=== PATIENT | female | born 1965 | race Two or more races ===

== ENCOUNTER 2017-04-23 09:09 | Emergency (ER) | payer BC ==
[~2017-04-23] VITALS: Ht 165.1 cm; Wt 95.3 kg
[~2017-04-23 09:09] MED LIST: ACET325T9 PO; ASPI1TAB30 PO; CETI10TA22 PO; EPIN0.155 IJ; ZOLP5TAB PO; [UNRECOGNIZED DRUG - CODE] PO; [UNRECOGNIZED DRUG - OTHER]
[2017-04-23] MEDS ORDERED: FAMOTIDINE 20 MG/2 ML VIAL IVP ONE (09:45)
[2017-04-23] MEDS ORDERED: IV NORMAL SALINE 1000ML BAG 1,000 ML IV ONE (09:45)
[2017-04-23 09:54] LABS: BILIRUBIN,URINE NEGATIVE (NEG); GLUCOSE,URINE NEGATIVE (NEG); NITRITE,URINE NEGATIVE (NEG); PH,URINE 7.5; PROTEIN,URINE NEGATIVE (NEG-TRACE); UROBILINOGEN,URINE 0.2 mg/dL (0.2 mg/dL)
[2017-04-23 09:54] LABS: BASO % 0 % (0-3); EOS % 1 % (0-3); HEMATOCRIT 39.8 % (36.0-47.0); HEMOGLOBIN 13.8 g/dL (12.0-15.5); LYMPH # 1.4 x10^3/uL (1.0-4.8); LYMPH % 16 % (24-48); MEAN CORPUSCULAR HEMOGLOBIN 31 pg (25-35); MEAN CORPUSCULAR HGB CONC 35 g/dL (31-37); MEAN CORPUSCULAR VOLUME 89 fL (79-100); MONO % 7 % (0-9); NEUT % 76 % (31-73); PLATELET COUNT 221 x10^3/uL (140-400); RED BLOOD COUNT 4.45 x10^6/uL (3.50-5.40); RED CELL DISTRIBUTION WIDTH 13.2 % (11.5-14.5); WHITE BLOOD COUNT 8.6 x10^3/uL (4.0-11.0)
[2017-04-23 10:04] LABS: SQUAMOUS EPITHELIAL CELL,UR MANY /LPF
[2017-04-23 10:06] LABS: BACTERIA,URINE MOD /HPF (0-FEW)
--- NOTE | 2017-04-23 10:15 | PHYS DOC ---
Past Medical History Past Medical History: GERD, Other Additional Past Medical Histor: HIATAL HERNIA-PER PT REPORT Past Surgical History: Appendectomy, Cholecystectomy, Hysterectomy, Other Additional Past Surgical Histo: "kidney", carpal tunnel Alcohol Use: None Drug Use: None Adult General Chief Complaint Chief Complaint: ABDOMINAL PAIN HPI HPI Patient is a 52 year old female who presents with moderate right upper quadrant abdominal pain and midepigastric abdominal pain that began 1 day ago. Patient denies any injury. Patient states the pain is worse when she takes a deep breath. Patient denies any urgency frequency or dysuria. Denies any chance she is . She states she's had appendectomy cholecystectomy and a full hysterectomy. Review of Systems Review of Systems Constitutional: Denies fever or chills [] Eyes: Denies change in visual acuity, redness, or eye pain [] HENT: Denies nasal congestion or sore throat [] Respiratory: Denies cough or shortness of breath [] Cardiovascular: No additional information not addressed in HPI [] GI: Midepigastric and right upper quadrant abdominal pain : See history of present illness Musculoskeletal: Denies back pain or joint pain [] Integument: Denies rash or skin lesions [] Neurologic: Denies headache, focal weakness or sensory changes [] Endocrine: Denies polyuria or polydipsia [] Current Medications Current Medications Current Medications Medications (Trade) Dose Ordered Sig/Ilene Start Time Stop Time Status Last Admin Dose Admin Famotidine (Pepcid) 20 mg 1X ONCE 04/23/17 09:45 04/23/17 09:46 DC 04/23/17 09:53 20 MG Info (Do NOT chart on this entry -- for MONITORING) 1 each PRN DAILY PRN 04/23/17 10:30 04/25/17 10:29 Iohexol (Omnipaque 300 Mg/ml) 75 ml 1X ONCE 04/23/17 10:30 04/23/17 10:31 DC 04/23/17 10:36 75 ML Magnesium Citrate (Citroma) 296 ml 1X ONCE 04/23/17 11:30 04/23/17 11:31 DC Sodium Chloride 1,000 ml @ 1,000 mls/hr 1X ONCE 04/23/17 09:45 04/23/17 10:44 DC 04/23/17 09:53 1,000 MLS/HR Allergies Allergies Allergies Coded Allergies Type Severity Reaction Last Updated Verified nut - unspecified Adverse Reaction Intermediate 04/23/17 No soy Adverse Reaction Intermediate 04/23/17 No wheat Adverse Reaction Intermediate 04/23/17 No Physical Exam Physical Exam Constitutional: Well developed, well nourished, no acute distress, non-toxic appearance. [] HENT: Normocephalic, atraumatic, bilateral external ears normal, oropharynx moist, no oral exudates, nose normal. [] Eyes: PERRLA, EOMI, conjunctiva normal, no discharge. [] Neck: Normal range of motion, no tenderness, supple, no stridor. [] Cardiovascular:Heart rate regular rhythm, no murmur [] Lungs & Thorax: Bilateral breath sounds clear to auscultation [] Abdomen: Bowel sounds normal, soft, mild tenderness on palpation of the right upper quadrant with a negative Richter sign, mild midepigastric abdominal tenderness on exam, no right lower quadrant pain or tenderness on exam, no masses, no pulsatile masses. [] Skin: Warm, dry, no erythema, no rash. [] Back: No tenderness, no CVA tenderness. [] Extremities: No tenderness, no cyanosis, no clubbing, ROM intact, no edema. [] Neurologic: Alert and oriented X 3, normal motor function, normal sensory function, no focal deficits noted. [] Psychologic: Affect normal, judgement normal, mood normal. [] Current Patient Data Vital Signs Vital Signs Date Time Temp Pulse Resp B/P (MAP) Pulse Ox O2 Delivery O2 Flow Rate FiO2 04/23/17 09:22 98.5 93 18 119/66 (83) 97 Room Air 98.5 Lab Values Laboratory Tests Test 04/23/17 09:20 04/23/17 09:45 Urine Collection Type Void Urine Color Yellow Urine Clarity Clear Urine pH 7.5 Urine Specific [place]ima 1.020 Urine Protein Negative mg/dL (NEG-TRACE) Urine Glucose (UA) Negative mg/dL (NEG) Urine Ketones (Stick) Negative mg/dL (NEG) Urine Blood Negative (NEG) Urine Nitrite Negative (NEG) Urine Bilirubin Negative (NEG) Urine Urobilinogen Dipstick 0.2 mg/dL (0.2 mg/dL) Urine Leukocyte Esterase Negative (NEG) Urine RBC 6-10 /HPF (0-2) Urine WBC 1-4 /HPF (0-4) Urine Squamous Epithelial Cells Many /LPF Urine Bacteria Mod /HPF (0-FEW) Urine Mucus Marked /LPF White Blood Count 8.6 x10^3/uL (4.0-11.0) Red Blood Count 4.45 x10^6/uL (3.50-5.40) Hemoglobin 13.8 g/dL (12.0-15.5) Hematocrit 39.8 % (36.0-47.0) Mean Corpuscular Volume 89 fL (79-100) Mean Corpuscular Hemoglobin 31 pg (25-35) Mean Corpuscular Hemoglobin Concent 35 g/dL (31-37) Red Cell Distribution Width 13.2 % (11.5-14.5) Platelet Count 221 x10^3/uL (140-400) Neutrophils (%) (Auto) 76 % (31-73) H Lymphocytes (%) (Auto) 16 % (24-48) L Monocytes (%) (Auto) 7 % (0-9) Eosinophils (%) (Auto) 1 % (0-3) Basophils (%) (Auto) 0 % (0-3) Neutrophils # (Auto) 6.5 x10^3uL (1.8-7.7) Lymphocytes # (Auto) 1.4 x10^3/uL (1.0-4.8) Monocytes # (Auto) 0.6 x10^3/uL (0.0-1.1) Eosinophils # (Auto) 0.1 x10^3/uL (0.0-0.7) Basophils # (Auto) 0.0 x10^3/uL (0.0-0.2) Sodium Level 141 mmol/L (136-145) Potassium Level 4.5 mmol/L (3.5-5.1) Chloride Level 103 mmol/L (98-107) Carbon Dioxide Level 31 mmol/L (21-32) Anion Gap 7 (6-14) Blood Urea Nitrogen 13 mg/dL (7-20) Creatinine 0.8 mg/dL (0.6-1.0) Estimated GFR (Cockcroft-Gault) 75.3 BUN/Creatinine Ratio 16 (6-20) Glucose Level 119 mg/dL (70-99) H Calcium Level 8.5 mg/dL (8.5-10.1) Total Bilirubin 0.9 mg/dL (0.2-1.0) Aspartate Amino Transferase (AST) 63 U/L (15-37) H Alanine Aminotransferase (ALT) 105 U/L (14-59) H Alkaline Phosphatase 149 U/L (46-116) H Creatine Kinase 41 U/L (26-192) Creatine Kinase MB (Mass) < 0.5 ng/mL (0.0-3.6) Creatine Kinase MB Relative Index % (0-4) Troponin I Quantitative < 0.017 ng/mL (0.000-0.055) HN-Cur-W-Type Natriuretic Peptide 106 pg/mL (0-124) Total Protein 6.8 g/dL (6.4-8.2) Albumin 3.6 g/dL (3.4-5.0) Albumin/Globulin Ratio 1.1 (1.0-1.7) Lipase 74 U/L (73-393) Laboratory Tests 04/23/17 09:45 Laboratory Tests 04/23/17 09:45 EKG EKG 09:30EKG interpreted by Dr. Den frost, leftward axis, heart rate 86, QRS interval 80, no STEMI [] Radiology/Procedures Radiology/Procedures [] Course & Med Decision Making Course & Med Decision Making Pertinent Labs and Imaging studies reviewed. (See chart for details) This is a 52-year-old female patient who presents to the ED today with midepigastric abdominal pain and right upper quadrant abdominal pain for 1 day. Patient has history of for hysterectomy, appendectomy and cholecystectomy. 09:30EKG interpreted by Dr. Den frost, leftward axis, heart rate 86, QRS interval 80, no STEMI [] CBC with no acute findings. CMP with AST of 63 ALT of 105 mL care 149. Troponin CK-MB and BNP were normal. CT of the abdomen and pelvic was negative for any acute findings but noted for constipation. Patient was discharged with mag citrate and MiraLAX. We talked about increasing dietary fiber intake as well as water intake. She is to follow- up with her own PCP in 1-2 weeks as needed. She is provided return precautions and discharged in stable condition. Dragon Disclaimer Dragon Disclaimer This electronic medical record was generated, in whole or in part, using a voice recognition dictation system. Departure Departure Impression: Primary Impression: Constipation Additional Impressions: Epigastric abdominal pain Right upper quadrant pain Disposition: 01 HOME, SELF-CARE Condition: STABLE Referrals: PETE COOPER MD (PCP) Follow-up with your doctor next week Patient Instructions: Abdominal Pain, Constipation, Adult Additional Instructions: You were seen for right upper quadrant abdominal pain and epigastric pain. Your lab work is negative for any acute findings. Your CT of the abdomen and pelvic is negative for any acute findings but noted for constipation. Increase your dietary fiber intake as well as a water intake. Consider taking MiraLAX every day. Consider taking mag citrate as needed for constipation. Follow-up with your doctor in the next 7 days. Problem Qualifiers Primary Impression: Constipation Constipation type: unspecified constipation type Qualified Codes: K59.00 - Constipation, unspecified HERNESTO SAVAGE TECHNICAL REP Apr 23, 2017 10:15
[2017-04-23 10:17] LABS: CALCIUM 8.5 mg/dL (8.5-10.1); CREATININE 0.8 mg/dL (0.6-1.0); GFR 75.3; POTASSIUM 4.5 mmol/L (3.5-5.1)
[2017-04-23 10:23] LABS: ALBUMIN 3.6 g/dL (3.4-5.0); ALBUMIN/GLOBULIN RATIO 1.1 (1.0-1.7); TOTAL BILIRUBIN 0.9 mg/dL (0.2-1.0); TOTAL PROTEIN 6.8 g/dL (6.4-8.2)
[2017-04-23] MEDS ORDERED: IOHEXOL 300 MG/ML 75 ML VIAL IV ONE (10:30)
[2017-04-23] MEDS ORDERED: CONTRAST GIVEN MC PRN (10:30)
[2017-04-23 10:36] LABS: CKMB MASS < 0.5 ng/mL (0.0-3.6); CREATINE KINASE 41 U/L (26-192)
--- NOTE | 2017-04-23 10:43 | RAD ---
Indication: Epigastric pain and right lower chest pain. Time of exam 10:34 AM Correlation is made with prior chest from 10/01/2016. There is minimal scarring or atelectasis in the left base. The right lung is clear. No effusion or pneumothorax is seen. The pulmonary vascularity is normal. The heart size is normal. Impression: No acute cardiopulmonary process is detected.
[2017-04-23 10:45] VITALS: BP 137/78
--- NOTE | 2017-04-23 10:56 | ACF ---
Admission Forms Criteria ABDOMINAL PAIN Clinical Indications for Admission to Inpatient Care (Place 'X' for any and all applicable criteria): Admission is indicated for ANY ONE of the following(1)(2)(3)(4)(5): [ ]I. Inpatient admission required rather than observation care (Also use Abdominal Pain: Observation Care, as appropriate) because of ANY ONE of the following: [ ]a) Severe pain requiring acute inpatient management [ ]b) Identification of etiology/finding that requires inpatient care (eg, aortic dissection, free air) [ ]c) Absent bowel sounds with complete ileus(6) [ ]d) Suspected toxic megacolon [ ]e) Severe electrolyte abnormalities requiring inpatient care [ ]f) High fever or infection requiring inpatient admission as indicated by ANY ONE of following(7)(8): [ ] i) Appropriate outpatient or observational care antimicrobial treatment unavailable, not effective, or not feasible [ ] ii) Documented bacteremia [ ] iii) Temperature > 104.9 degrees F (oral) [ ] iv) T >103.1 F (oral) or < 96.8 F(rectal) that does not respond to all emergency treatment measures [ ]g) Signs of intestinal obstruction [B] [ ]h) Hemodynamic instability [ ]i) IV fluid to replace significant ongoing losses (greater than 3 L/m2 per day) (12)(13) [ ]j) Percutaneous or open drainage (eg, abscess, biliary tract ) procedures [ ]k) Parenteral nutrition regimen that must be implemented on inpatient basis [ ]l) Other condition,treatment or monitoring requiring inpatient admission. [ ]II. Peritoneal signs present [ ]III. Surgery needed that cannot be performed on an ambulatory basis. [ ]IV. Evaluation requires patient to not eat or drink for extended period ( eg, more than 24 hours). [ ]V. Contraindications and/or Inappropriate clinical situations for Observational Care in patients with abdominal pain, when ANY ONE of the following is required: [ ]a) Thorough evaluation is required to prevent catastrophic events due to delays in diagnosing (e.g.Mesenteric ischemia) 1,3 [ ]b) Patient with severe pathology or with chronic symptoms unlikely to improve in the ED stay (3) [ ]. General contraindications and/or Inappropriate clinical situations for Observational Care in patients with abdominal pain, when ANY ONE of the following is required: [ ]a) Prediction of prolongation of LOS based on ANY ONE of the following may be considered as a contraindication for observational care 2, 3, 4, 5, 6, 7, 8, 9, 10, 11 [ ]i) Age > 65 yrs. [ ]ii) Patient arriving by ambulance [ ]iii) Patient with high acuity [ ]iv) Patient requiring vital sign monitoring [ ]v) Patient on IV medication [ ]b) Systolic blood pressures 180mmHg 3,12 [ ]c) Patient with altered mental status including delirium and other alteration of consciousness, (3) [ ]d) Patient whose discharge disposition will be to a half-way home or rehabilitation home should not be managed in Emergency Department Observation Unit. CMS rule requires 3 days hospital stay before such placement.3,13 [ ]e) Patient with failure to thrive due to broad array of etiologies 3,16,17 [ ]f) Inability to ambulate 3,14 Extended stay beyond goal length of stay may be needed for(2)(3): [ ]a) Persistent abdominal pain with suspected intra-abdominal process [ ]b) Diagnosed condition requiring continued stay (e.g., pancreatitis, complicated diverticulitis) [ ]c) Surgery (e.g., colectomy) The original [facility] content created by [employer] has been revised. The portions of the content which have been revised are identified through the use of italic text or in bold, and [facility] has neither reviewed nor approved the modified material.All other unmodified content is copyright [employer]. Please see references footnoted in the original [facility] edition 2016 STEPHANY CORONA Apr 23, 2017 10:55
--- NOTE | 2017-04-23 11:03 | RAD ---
Indication: Epigastric pain. Axial imaging through the abdomen and pelvis was performed after the administration of intravenous contrast. Comparison is made with prior CT from 11/07/2011. The lung bases are clear apart from mild linear scarring or atelectasis in the lower lobes. No discrete liver mass is identified. The gallbladder is surgically absent. The pancreas and spleen are unremarkable. No adrenal mass is identified. The kidneys are unremarkable. The aorta is nonaneurysmal. The small and large bowel loops appear to be normal in caliber. No free fluid is detected. No acute inflammatory process is seen. The appendix may be surgically absent. The bladder is unremarkable. No abdominal or pelvic lymphadenopathy is detected. Impression: Essentially unremarkable CT of the abdomen and pelvis apart from moderate stool throughout the colon, perhaps on the basis of constipation. No acute feature is detected.
[2017-04-23] MEDS ORDERED: MAGNESIUM CITRATE 296 ML SOLUTION. PO ONE (11:30)
--- NOTE | 2017-04-23 13:31 | EKG ---
[facility] [address] [place] [address] Test Date: 2017-04-23 Test Time: 09:30:51 Pat Name: LORE RAMSEY Department: Room: Gender: F Hydrometer Calibrator: : 1965 Requested By: HERNESTO SAVAGE Order Number: [id number] [place] MD: Felisha Cordero Measurements Intervals [place] Rate: 86 P: 52 ND: 154 QRS: 26 QRSD: 80 T: 55 QT: 366 QTc: 441 Interpretive Statements SINUS RHYTHM LEFT ATRIAL ABNORMALITY ABNORMAL ECG Electronically Signed On 04-24-2017 14:16:44 CDT by Felisha Cordero
== END 2017-04-23 12:37 | disposition home or self-care (01) ==
LOC: ER 09:09
DX: R10.11 Right upper quadrant pain (principal); R10.13 Epigastric pain; K59.00 Constipation, unspecified; K21.9 Gastro-esophageal reflux disease without esophagitis; Z90.710 Acquired absence of both cervix and uterus; Z90.49 Acquired absence of other specified parts of digestive tract; Z98.890 Other specified postprocedural states; Z91.018 Allergy to other foods
CPT/HCPCS: 36415; 71010; 74177; 80053; 81001; 82553; 83690; 83880; 84484; 85027; 93005; 96361; 96374; 99285; J7030; Q9967; S0028

== ENCOUNTER → 2017-07-28 | Outpatient (CLI) | payer BC ==
[~2017-07-28] MED LIST changes: -ASPI1TAB30 PO; +ASPI1TAB31 PO
--- NOTE | 2017-07-28 11:17 | RAD ---
Radionuclide gastric emptying study, 07/28/2017: History: Abdominal pain, reflux The study was performed utilizing a solid test meal radiolabeled with 2.1 mCi of technetium 99m sulfur colloid. The time to half emptying of the test meal from the patient's stomach was estimated at 400 minutes. A normal T1/2 is 60 minutes +/- 30 minutes. IMPRESSION: Moderately delayed gastric emptying.
== END | disposition home or self-care (01) ==
LOC: NM 08:52
PROVIDERS: ATTEND Internal Medicine Gastroenterology
DX: K21.9 Gastro-esophageal reflux disease without esophagitis (principal); K30 Functional dyspepsia
CPT/HCPCS: 78264; A9541

== ENCOUNTER 2017-08-16 06:27 | Emergency (ER) | payer BC ==
[~2017-08-16] VITALS: Ht 165.1 cm; Wt 95.3 kg
[2017-08-16] MEDS ORDERED: IBUPROFEN 400 MG TABLET. PO ONE (07:00)
[2017-08-16] MEDS ORDERED: ACETAMINOPHEN 500 MG TABLET PO ONE (07:00)
--- NOTE | 2017-08-16 07:13 | RAD ---
Right foot, 3 views, 08/16/2017: History: Injury, pain There is deformity of the distal aspect of the proximal phalanx of the little toe involving its articular cortex at the PIP joint. This fracture is probably recent. No other fracture or dislocation is identified. There is moderate diffuse soft tissue swelling about the forefoot. IMPRESSION: Fracture of the proximal phalanx of the right little toe.
[2017-08-16] MEDS ORDERED: HYDR-2758 PO (07:29)
[2017-08-16] MEDS ORDERED: NAPR500T PO (07:29)
--- NOTE | 2017-08-16 07:29 | PHYS DOC ---
Past Medical History Past Medical History: GERD, Other Additional Past Medical Histor: HIATAL HERNIA-PER PT REPORT Past Surgical History: Appendectomy, Cholecystectomy, Hysterectomy, Other Additional Past Surgical Histo: "kidney", carpal tunnel Alcohol Use: None Drug Use: None Adult General Chief Complaint Chief Complaint: TOE PROBLEM HPI HPI She is a pleasant 52-year-old otherwise healthy female who was playing with her dog yesterday which she stubbed her toe into the edge of a door. She noticed immediate pain localized swelling at the proximal portion of that small right toe. She denies any numbness, tingling belly pain with walking. The pain is severe 10 of 10 with walking 6 of 10 with at rest and the foot is elevated. She denies any prior injury to this toe. Noticed no deformity just local soft tissue swelling. Review of Systems Review of Systems Constitutional: Denies fever or chills [] Musculoskeletal: Her only complaint is joint pain over the proximal portion of the toe right foot pinky toe Integument: Denies rash or skin lesions [] Neurologic: Denies headache, focal weakness or sensory changes [] Current Medications Current Medications Current Medications Medications (Trade) Dose Ordered Sig/[facility] Start Time Stop Time Status Last Admin Dose Admin Acetaminophen (Tylenol) 1,000 mg 1X ONCE 08/16/17 07:00 08/16/17 07:01 DC 08/16/17 06:54 1,000 MG Ibuprofen (Motrin) 400 mg 1X ONCE 08/16/17 07:00 08/16/17 07:01 DC 08/16/17 06:54 400 MG Allergies Allergies Allergies Coded Allergies Type Severity Reaction Last Updated Verified nut - unspecified Adverse Reaction Intermediate 04/23/17 No soy Adverse Reaction Intermediate 04/23/17 No wheat Adverse Reaction Intermediate 04/23/17 No Physical Exam Physical Exam Vital signs recorded on the chart at this time within normal limits. Constitutional: Well developed, well nourished, no acute distress, non-toxic appearance. [] Cardiovascular:Heart rate regular rhythm, no murmur [] Lungs & Thorax: Bilateral breath sounds clear to auscultation [] Skin: Warm, dry, no erythema, no rash. [] Extremities: She has marked tenderness to palpation over the proximal phalanx of the right pinky toe with no obvious deformity there is some mild soft tissue swelling no erythema to the wound. Patient has normal sensation to light touch brisk capillary refill +2 brisk peripheral pulses at the dorsalis pedis Neurologic: Alert and oriented X 3, normal motor function, normal sensory function, no focal deficits noted. [] Current Patient Data Vital Signs Vital Signs Date Time Temp Pulse Resp B/P (MAP) Pulse Ox O2 Delivery O2 Flow Rate FiO2 08/16/17 06:38 97.5 68 16 98 Room Air 97.5 EKG EKG [] Radiology/Procedures Radiology/Procedures [] [facility] [address] [place] [address] IMAGING REPORT Signed PATIENT: LORE RAMSEY ACCOUNT: [id number] : 1965 LOCATION: ER AGE: 52 SEX: F EXAM STATUS: REG ER ORD. PHYSICIAN: JENNIFER RIDDLE MD REASON: trauma little toe PROCEDURE: FOOT RIGHT 3V Right foot, 3 views, 08/16/2017: History: Injury, pain There is deformity of the distal aspect of the proximal phalanx of the little toe involving its articular cortex at the PIP joint. This fracture is probably recent. No other fracture or dislocation is identified. There is moderate diffuse soft tissue swelling about the forefoot. IMPRESSION: Fracture of the proximal phalanx of the right little toe. DICTATED and SIGNED BY: AUGUSTO RODRÍGUEZ MD DATE: 08/16/17 0706 CC: JENNIFER RIDDLE MD; Gracy COOPER MD ~ Course & Med Decision Making Course & Med Decision Making Pertinent Labs and Imaging studies reviewed. (See chart for details) []Patient sustained a small injury to the proximal phalanx of the right pinky toe. Based on x-ray findings she has a fracture of the proximal phalanx with no foreign body no air. The wound is not open there is no angulation or displacement of the fracture. Patient's neurovascular intact. She and I went over the results of the x-ray or plan for treatment to include a hard shoe, podiatry or follow-up, and analgesic control for pain. Dragon Disclaimer Dragon Disclaimer This electronic medical record was generated, in whole or in part, using a voice recognition dictation system. Departure Departure Impression: Primary Impression: Toe fracture, right Disposition: 01 HOME, SELF-CARE Condition: IMPROVED Referrals: Gracy COOPER MD (PCP) Patient Instructions: Toe Fracture Additional Instructions: My discharge plan Follow up: In addition patient is asked to followup with their primary doctor, within a week for followup examination and to address patient's ongoing medical conditions. Patient is advised that in the Emergency Department primary complaints are addressed and only in light of known signs and symptoms. Patient should return immediately to the emergency department if new signs and symptoms develop or patient's condition worsens in any way. At time of discharge patient was in stable condition and had verbalized understanding of the discharge instructions. Follow-up your primary care doctor for referral from podiatry. Please return for any new or increasing pain, decreased sensation or obvious signs of infection. I would advise a follow-up with podiatry so they can help manage her fractured toe Podiatry [facility] [address], [place] [address] Scripts Naproxen (NAPROSYN) 500 Mg Tablet 1 TAB PO BID, #14 TAB 1 Refill Prov: JENNIFER RIDDLE MD 08/16/17 Hydrocodone Bit/Acetaminophen (HYDROCODONE-APAP 5-325 ) 1 Each Tablet 1-2 TAB PO PRN Q6HRS Y for PAIN for 5 Days, #10 TAB 0 Refills Prov: JENNIFER RIDDLE MD 08/16/17 JENNIFER RIDDLE MD Aug 16, 2017 07:29
[2017-08-16 07:45] VITALS: BP 119/69
== END 2017-08-16 07:50 | disposition home or self-care (01) ==
LOC: ER 06:27
DX: S92.511A Displaced fracture of proximal phalanx of right lesser toe(s), initial encounter for closed fracture (principal); Z91.018 Allergy to other foods; K21.9 Gastro-esophageal reflux disease without esophagitis; W22.8XXA Striking against or struck by other objects, initial encounter; Y93.89 Activity, other specified; Y99.8 Other external cause status; Y92.89 Other specified places as the place of occurrence of the external cause
CPT/HCPCS: 73630; 99284-25

== ENCOUNTER → 2017-09-14 | Outpatient (CLI) | payer BC ==
[2017-08-16 07:45] VITALS: BP 119/69
[~2017-09-14] MED LIST changes: +HYDR-2758 PO; +IOHEXOL 180 MG/ML 10 ML VIAL. ONE; +NAPR500T PO; +methylPREDNISolone ACETATE 40 MG/ML VIAL. ONE; +methylPREDNISolone ACETATE 80 MG/ML VIAL. ONE
--- NOTE | 2017-09-14 11:13 | PAIN ---
DATE OF SERVICE: 09/14/2017 DIAGNOSES: Cervical radiculopathy, cervical degenerative disease, cervical herniated disk. HISTORY OF PRESENT ILLNESS: The patient is a 52-year-old female who returns to followup, last seen 02/19/2016. The patient had a cervical epidural steroid injection at that time with good results, the patient reports at least 75% improvement. She is unsure how long it lasted. She does not remember, it has been several months, but the pain has returned significantly over at least the last 1-2 months in the base of the neck with some radiation to the right worse than the left upper extremity. The patient reports no new motor or sensory deficits, no new changes, but still significant pain, worse with activity, especially with her activities at work. 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 The patient reports it as aching, tight, radiating, constant, becoming more severe sometimes unbearable with decreased rotation of motion secondary to stiffness and pain in the neck itself. The patient reports her pain is at 8 on a scale of 10 at its worst, is the average and its least is an 8 today. The patient reports no new motor or sensory deficits or loss of function. PHYSICAL EXAMINATION: VITAL SIGNS: The patient's blood pressure 132/96, pulse 81, respirations 18, temperature 98.1 degrees Fahrenheit, height is 5 feet 5 inches, weight is 220 pounds. GENERAL: The patient is awake, alert, oriented, appropriate, very pleasant demeanor. HEENT: Head shows normocephalic, atraumatic. Extraocular movements are intact, symmetrical. Oral cavity: Mucous membranes moist and pink. Dentition is intact. NECK: Shows anterior throat supple without palpable lymphadenopathy nodes. Swallow reflex is symmetrical. CHEST: Shows normal on inspection. Breath sounds are clear to auscultation bilaterally. HEART: Shows S1, S2 clear. ABDOMEN: Soft, nontender, nondistended. No palpable organomegaly. There is no rebound or guarding demonstrated. BACK: The patient's back shows spine grossly midline, normal-appearing cervical lordotic curvature, thoracic kyphotic curvature, and lumbar lordotic curvature. The patient's neck shows posterior cervical musculature was symmetrical. On inspection with palpation, shows some moderate tenderness with palpation in the inferior aspect of the cervical paraspinous muscles into the superior medial trapezius as well as the lateral trapezius on the right, very firm, very tender also over the spinous processes, it is very firm and tender as well. The patient shows some limited rotational motion with extension, but not with forward flexion. Right and left lateral rotation is guarded significantly, especially to about 45 degrees with significant pain reported bilaterally with 45-degree rotation. EXTREMITIES: Upper extremities show deep tendon reflexes 1+ in the biceps and triceps tendons. Motor exam is strong with approximately 4 on a scale 5 dorsiflexion and extension, quads and hamstring; 4/5 senior marketing analyst strength and equal as well as bicep and tricep flexion bilaterally and symmetrical. Peripheral pulses are 2+ radial distribution. No peripheral edema is noted. Options were discussed with the patient, the patient's old chart reviewed as her current medication regimen updated. Current review of systems updated today as well. We will proceed with a cervical epidural steroid injection today with fluoroscopic guidance. Risks were again discussed including but not limited to bleeding, possibility of epidural hematoma, subsequent neurological compromise, dural puncture, headaches, spinal cord and/or nerve damage, side effects of steroid medication and poor results regarding pain control. The patient understands and wished to proceed. The patient will return to clinic in approximately 2 weeks for followup, was counseled on return appointment, activity level and side effects to be aware of. DIAGNOSIS: Cervical radiculopathy, cervical herniated disk, cervical degenerative disk disease. PROCEDURE: Cervical epidural steroid injection, translaminar approach at C6-C7 level using C-arm fluoroscopic guidance under sterile prep and drape using local anesthetic. MEDICATION INJECTED: Total of 120 mg Depo-Medrol plus 5 mL preservative-free normal saline and 2 mL Isovue for contrast. CONDITION AT DISCHARGE: Stable. The patient tolerated procedure well, had no complications. JENNA KEARNS MD DR: RAJENDRA/francois JOB#: [id number] / [id number]
== END ==
LOC: PNCL 08:14
PROVIDERS: ATTEND Anesthesiology
DX: M50.10 Cervical disc disorder with radiculopathy, unspecified cervical region (principal)
CPT/HCPCS: 62321; J1030; J1040

== ENCOUNTER 2017-10-04 09:26 | Emergency (ER) | payer BC ==
[~2017-10-04 09:26] MED LIST changes: -IOHEXOL 180 MG/ML 10 ML VIAL. ONE; +NAPR-683 PO; -NAPR500T PO; -methylPREDNISolone ACETATE 40 MG/ML VIAL. ONE; -methylPREDNISolone ACETATE 80 MG/ML VIAL. ONE
--- NOTE | 2017-10-04 09:43 | PHYS DOC ---
Past Medical History Past Medical History: GERD, Other Additional Past Medical Histor: HIATAL HERNIA-PER PT REPORT Past Surgical History: Appendectomy, Cholecystectomy, Hysterectomy, Other Additional Past Surgical Histo: "kidney", carpal tunnel Alcohol Use: None Drug Use: None Adult General Chief Complaint Chief Complaint: DIZZY/LIGHT HEADED HPI HPI Patient is a 52 year old F who presents with headache for the past 4 days. Patient states she has a history of migraine headaches and felt this was her typical migraine headache and attempted to take migraine Excedrin over the weekend however since the headache was still present today she's had a come in to get evaluated. Patient states this feels similar to previous headaches. Patient denies any fevers. Patient states she has a pressure to the top of her head. Patient denies any chest pain or shortness of breath. Patient complains of nausea and vomiting with no diarrhea. Patient has no other complaints. Review of Systems Review of Systems GEN: Denies fevers, chills, sweats HEENT: Denies blurred vision, sore throat CV: Denies chest pain RESP: Denies shortness of air, cough GI: Denies n/v/d NEURO: Headache MSK: Denies weakness, joint pain/swelling All other systems were reviewed and found to be within normal limits, except as documented in this note. Current Medications Current Medications Current Medications Medications (Trade) Dose Ordered Sig/Ilene Start Time Stop Time Status Last Admin Dose Admin Dexamethasone Sodium Phosphate (Decadron) 10 mg 1X ONCE 10/04/17 09:45 10/04/17 09:46 DC 10/04/17 09:58 10 MG Diphenhydramine HCl (Benadryl) 50 mg 1X ONCE 10/04/17 09:45 10/04/17 09:46 DC 10/04/17 09:58 50 MG Ketorolac Tromethamine (Toradol) 30 mg 1X ONCE 10/04/17 11:00 10/04/17 11:03 DC 10/04/17 11:36 30 MG Magnesium Sulfate/ Dextrose 50 ml @ 25 mls/hr 1X ONCE 10/04/17 10:00 10/04/17 11:59 10/04/17 10:13 25 MLS/HR Metoclopramide HCl (Reglan Vial) 10 mg 1X ONCE 10/04/17 09:45 10/04/17 09:46 DC 10/04/17 09:58 10 MG Ondansetron HCl (Zofran) 4 mg 1X ONCE 10/04/17 10:15 10/04/17 10:16 DC 10/04/17 10:13 4 MG Sodium Chloride 1,000 ml @ 1,000 mls/hr 1X ONCE 10/04/17 09:45 10/04/17 10:44 DC 10/04/17 09:58 1,000 MLS/HR Allergies Allergies Allergies Coded Allergies Type Severity Reaction Last Updated Verified nut - unspecified Adverse Reaction Intermediate 04/23/17 No soy Adverse Reaction Intermediate 04/23/17 No wheat Adverse Reaction Intermediate 04/23/17 No Physical Exam Physical Exam GEN.: Mild distress. Alert and oriented. HEENT: Head is normocephalic, atraumatic, pupils were equal and reactive bilaterally, extraocular muscles are intact bilaterally NECK: Supple. LUNGS: CTAB. HEART: RRR, S1, S2 present. Peripheral pulses intact ABDOMEN: Soft, nontender. Positive bowel sounds. EXTREMITIES: Without any cyanosis. NEUROLOGIC: Normal speech, normal tone, cranial nerves II through XII are grossly intact without any focal neurological deficits PSYCHIATRIC: Normal affect, normal mood. SKIN: No ulcerations Current Patient Data Vital Signs Vital Signs Date Time Temp Pulse Resp B/P (MAP) Pulse Ox O2 Delivery O2 Flow Rate FiO2 10/04/17 11:38 76 16 95 10/04/17 09:30 97.9 136/75 (95) Room Air 97.9 Lab Values Laboratory Tests Test 10/04/17 10:10 Sodium Level 141 mmol/L (136-145) Potassium Level 3.7 mmol/L (3.5-5.1) Chloride Level 103 mmol/L (98-107) Carbon Dioxide Level 28 mmol/L (21-32) Anion Gap 10 (6-14) Blood Urea Nitrogen 9 mg/dL (7-20) Creatinine 0.9 mg/dL (0.6-1.0) Estimated GFR (Cockcroft-Gault) 65.8 Glucose Level 118 mg/dL (70-99) H Calcium Level 8.6 mg/dL (8.5-10.1) Laboratory Tests 10/04/17 10:10 EKG EKG [] Radiology/Procedures Radiology/Procedures CT scan of the head without contrast: IMPRESSION: 1. Abnormal bilateral deep white matter lucencies compatible with chronic ischemic change versus a demyelinating process such as multiple sclerosis. 2. No acute intracranial abnormality is detected.[] Course & Med Decision Making Course & Med Decision Making Pertinent Labs and Imaging studies reviewed. (See chart for details) ED course: Patient was seen and examined emergency room 50 mg of Benadryl, 10 mg Decadron, 2 g of magnesium sulfate, 10 mg Reglan, 1 L normal saline bolus, CT scan of the head without contrast and i-STAT were ordered Patient i-STAT is most likely hemolyzed with potassium is 6.5 however will recheck potassium with a lab draw Repeat potassium was 3.[address] findings in regards to possible MS and possible previous ischemic strokes and recommended short-term follow-up with PCP for possible outpatient MRI and further workup. On reexamination patient's headache had resolved and was feeling much better. MDM: After reviewing the chart, CC/HPI/PMH, physical exam, [lab results], [ radiological results], I do not believe the patient has a acute intracranial process warranting further workup and/or admission at this time. I believe the patient stable for discharge. Made patient aware of CT abnormalities and recommended short-term follow-up with her PCP in regards to the CT abnormalities and the possible need of getting outpatient MRI. Additional verbal discharge instructions were provided to the patient and that if symptoms get worse or any new symptoms arise that are worrisome to the patient she is to return to the emergency room immediately [] Dragon Disclaimer Dragon Disclaimer This electronic medical record was generated, in whole or in part, using a voice recognition dictation system. Departure Departure Impression: Primary Impression: Migraine headache Disposition: 01 HOME, SELF-CARE Condition: IMPROVED Referrals: Gracy COOPER MD (PCP) Patient Instructions: Migraine Headache Additional Instructions: Please follow-up with your family physician in the next one to 2 days and return if symptoms increase FABIOLA OLIVIA DO Oct 04, 2017 09:43
[2017-10-04] MEDS ORDERED: DEXAMETHASONE SOD PHOS 4 MG/ML VIAL IV ONE (09:45)
[2017-10-04] MEDS ORDERED: IV NORMAL SALINE 1000ML BAG 1,000 ML IV ONE (09:45)
[2017-10-04] MEDS ORDERED: METOCLOPRAMIDE HCL 10 MG/2 ML VIAL. IV ONE (09:45)
[2017-10-04] MEDS ORDERED: diphenhydrAMINE 50 MG/ML VIAL IVP ONE (09:45)
[2017-10-04] MEDS ORDERED: MAGNESIUM SULFATE 2GM 50 ML IV ONE (10:00)
[2017-10-04] MEDS ORDERED: ONDANSETRON PF 4 MG/2 ML VIAL. ONE (10:07)
[2017-10-04] MEDS ORDERED: ONDANSETRON PF 4 MG/2 ML VIAL. IV ONE (10:15)
[2017-10-04 10:26] LABS: CALCIUM 8.6 mg/dL (8.5-10.1); CREATININE 0.9 mg/dL (0.6-1.0); GFR 65.8; POTASSIUM 3.7 mmol/L (3.5-5.1)
[2017-10-04] MEDS ORDERED: KETOROLAC 30 MG/ML INJ. IV ONE (11:00)
--- NOTE | 2017-10-04 11:13 | RAD ---
CT of the head without contrast, 10/04/2017: History: Headache The ventricles are within normal limits in size. There is no shift of the midline structures. There is no evidence of acute intracranial hemorrhage or mass effect. There are mild patchy deep white matter lucencies which are most prominent in the parieto-occipital regions. The findings suggest chronic ischemic change. Abnormal deep white matter findings were also noted on an MR study from 01/03/2016. IMPRESSION: 1. Abnormal bilateral deep white matter lucencies compatible with chronic ischemic change versus a demyelinating process such as multiple sclerosis. 2. No acute intracranial abnormality is detected. PQRS Compliance Statement: One or more of the following individualized dose reduction techniques were utilized for this examination: 1. Automated exposure control 2. Adjustment of the mA and/or kV according to patient size 3. Use of iterative reconstruction technique
[2017-10-04 12:15] VITALS: BP 128/72
== END 2017-10-04 12:30 | disposition home or self-care (01) ==
LOC: ER 09:26
DX: G43.909 Migraine, unspecified, not intractable, without status migrainosus (principal); K21.9 Gastro-esophageal reflux disease without esophagitis; Z86.73 Personal history of transient ischemic attack (TIA), and cerebral infarction without residual deficits; Z91.018 Allergy to other foods
CPT/HCPCS: 36415; 70450; 80048; 96365; 96375; 99285; J1100; J1200; J1885; J2405; J2765; J7030; J7060

== ENCOUNTER → 2017-10-12 | Outpatient (CLI) | payer BC ==
[2017-10-04 12:15] VITALS: BP 128/72
[~2017-10-12] MED LIST changes: +GADOBUTROL 10 MMOL/10 ML VIAL IV ONE
--- NOTE | 2017-10-13 05:16 | KCIC ---
EXAM: MRI BRAIN WITH AND WITHOUT CONTRAST. HISTORY: Headache, dizziness, nausea. White matter changes on prior CT. TECHNIQUE: Magnetic resonance images of the brain were obtained before and after the intravenous administration of 9 mL Gadavist. COMPARISON: October 04, 2017. FINDINGS: There are no enhancing lesions. There is no diffusion restriction. There are moderately sized regions of T2/FLAIR hyperintensity within the periventricular white matter in both parietal lobes. The left-sided focus measures 2.0 x 1.2 cm. There are a few small foci elsewhere. The ventricles are normal in size and position. The paranasal sinuses are clear. The orbits are unremarkable. The temporal bones are unremarkable. The calvarium demonstrates no suspicious lesions. IMPRESSION: 1. Moderately sized region of bilateral parietal white matter T2/FLAIR hyperintensity are nonspecific. Considerations include demyelination, posterior reversible encephalopathy syndrome, or other primary white matter processes. No enhancement to suggest active demyelination. 2. Scattered small white matter lesions elsewhere are nonspecific and may represent chronic microangiopathic change. Electronically signed by: Celina Martinez MD (10/13/2017 5:13 AM) [facility] [id number]
== END | disposition home or self-care (01) ==
LOC: KCIC MRI 15:16
PROVIDERS: ATTEND Family Medicine
DX: G43.709 Chronic migraine without aura, not intractable, without status migrainosus (principal); I67.83 Posterior reversible encephalopathy syndrome; R11.0 Nausea; R90.82 White matter disease, unspecified
CPT/HCPCS: 70553; A9585

== ENCOUNTER → 2017-11-08 | Outpatient (CLI) | payer BC | END | disposition home or self-care (01) | LOC: PNCL 08:17 | DX: M50.10 Cervical disc disorder with radiculopathy, unspecified cervical region (principal) | CPT/HCPCS: 99212 ==

== ENCOUNTER → 2018-01-12 | Outpatient (CLI) | payer BC | END | disposition home or self-care (01) | LOC: MRI 15:23 | DX: M47.22 Other spondylosis with radiculopathy, cervical region (principal); M48.02 Spinal stenosis, cervical region | CPT/HCPCS: 72141 ==

== ENCOUNTER → 2018-07-27 | Outpatient (CLI) | payer BC ==
[~2018-07-27] MED LIST changes: -GADOBUTROL 10 MMOL/10 ML VIAL IV ONE; +MECL-51 PO; +TRAM50TA PO
--- NOTE | 2018-07-27 14:41 | CARD ---
MR#: [id number] Date of Study: 07/27/2018 Ordering Physician: SEBASTIAN BUCK, Referring Physician: SEBASTIAN BUCK, Tech: Beatriz Jarquin RDCS APPROVED REPORT INDICATION Chest Pain PROCEDURE The patient underwent an Exercise Stress Test using the Keny Protocol. Blood pressure, heart rate, a nd EKG were monitored. An Echocardiogram was performed by heavy equipment technician in four stages in quad fashion. At peak stress four se lected images were obtained and placed side by side with resting images for comparison. STRESS ECHO FINDINGS The resting Echocardiogram showed normal left ventricular systolic contractility with an estimated Ej ection Fraction of about 60 %. The Resting Echocardiogram showed normal augmentation of myocardial wall segments using a 16 segment model. The Stress Echocardiogram showed normal augmentation of myocardial wall segments using a 16 segment m katey. The Stress Echocardiogram left ventricular systolic contractility has an estimated Ejection Fraction of about 65%. Test Type: Exercise Stress Nurse/Tech: Lalita Dumont R.N. Test Indications: sharp chest pain Cardiac History and Allergies: none Medications: see ehr Medical History: see ehrq Resting ECG: sr Resting Heart Rate: 81 bpm Resting Blood Pressure: 142/81mmHg Pretest Chest Pain: No chest pain Nurse/Tech Notes lungs cta, heart tones regular Stress Symptoms No chest pain or symptoms. POST EXERCISE Reason for Termination: Reached target heart rate, Fatigue Target HR: Yes Max HR: 152 bpm 91% of Maximum Predicted HR: 167 bpm Exercise duration: 6:31 min:sec, 3 Stage Exercise capacity: 7.0METs Max Blood Pressure: 154/88mmHg Blood Pressure response to exercise: Normal blood pressure response during stress. Heart Rate response to exercise: normal Chest Pain: No. Arrhythmia: No. ST Change: No. possibly some minimal depression noted in final stage of exercise, difficult to interp ret with large amt of artifact Preliminary Notification Critical Value: No <Conclusion> Treadmill exercise stress echocardiogram did not show any evidence of ischemia or infarct. Normal left ventricle systolic function with ejection fraction estimated at 60%. Patient had good activity tolerance. Low risk for cardiac events. Signed by : Neo Collins, Electronically Approved : 07/27/2018 14:40:02
== END | disposition home or self-care (01) ==
LOC: ECHO 12:30
PROVIDERS: ATTEND Internal Medicine Cardiovascular Disease
DX: R07.89 Other chest pain (principal); R53.83 Other fatigue
CPT/HCPCS: 93017; 93350

== ENCOUNTER → 2018-11-14 | Outpatient (CLI) | payer BC ==
[~2018-11-14] MED LIST changes: -HYDR-2758 PO; +HYDR-2761 PO; +IOHEXOL 240 MG/ML 50ML VIAL. PO ONE; +IOHEXOL 300 MG/ML 100ML VIAL. IV ONE
--- NOTE | 2018-11-14 12:10 | KCIC ---
PQRS Compliance statement: One or more of the following individualized dose reduction techniques were utilized for this examination: 1. Automated exposure control. 2. Adjustment of the mA and/or kV according to patient size. 3. Use of iterative reconstruction technique. INDICATION: Change in bowel movement, microscopic hematuria, epigastric pain. TECHNIQUE: CT abdomen and pelvis without and with IV contrast with multiplanar reformats. COMPARISON: 04/23/2017 FINDINGS: Heart is normal in size. No pericardial or pleural effusion. Clear lung bases. Liver, spleen, pancreas, adrenals within normal limits. Status post cholecystectomy. No nephrolithiasis or hydronephrosis. No enlarged retroperitoneal or pelvic adenopathy. No free pelvic fluid or ascites. No bowel obstruction. Status post hysterectomy. Urinary bladder demonstrates no radiopaque stones. No suspicious bony lesion. IMPRESSION: No acute findings. Electronically signed by: Maurice Avila DO (11/14/2018 12:05 PM) [id number]
== END | disposition home or self-care (01) ==
LOC: KCIC CT 09:00
PROVIDERS: ATTEND Family Medicine
DX: R19.5 Other fecal abnormalities (principal); R31.29 Other microscopic hematuria; R10.13 Epigastric pain; Z90.49 Acquired absence of other specified parts of digestive tract; Z90.710 Acquired absence of both cervix and uterus
CPT/HCPCS: 74178; Q9966; Q9967

== ENCOUNTER → 2019-05-01 | Outpatient (CLI) | payer BC ==
--- NOTE | 2019-05-01 13:44 | KCIC ---
PQRS Compliance Statement: One or more of the following individualized dose reduction techniques were utilized for this examination: 1. Automated exposure control 2. Adjustment of the mA and/or kV according to patient size 3. Use of iterative reconstruction technique CT abdomen/pelvis with contrast 05/01/2019 12:00 AM INDICATION: Right groin and flank pain for one year. COMPARISON: None available TECHNIQUE: Multiple axial CT images of the abdomen and pelvis were obtained after the intravenous administration of 100 mL Omnipaque 300. Coronal and sagittal reformats are provided. FINDINGS: Lung bases are clear. Heart size is within normal limits. Hypoattenuation of the hepatic parenchyma is suggestive of hepatic steatosis. Portal venous system is patent. Gallbladder surgically absent. No intrahepatic or extrahepatic biliary ductal dilatation. Spleen, bilateral adrenal glands and pancreas are normal in appearance. Abdominal aorta is normal in course and caliber. There are no pathologically enlarged lymph nodes in the abdomen and pelvis. There is a small fat-containing left inguinal hernia. Mild colonic diverticulosis. Appendix is surgically absent. Oral contrast was administered. Opacified bowel loops demonstrate normal mucosal fold pattern. Stomach is normal in appearance with small hiatal hernia. No evidence for bowel obstruction or inflammation. 10 mm simple cyst in the superior pole right kidney. Right parapelvic cysts are present. No hydronephrosis. Kidneys enhance symmetrically. No calculi are identified along the kidneys, ureters or urinary bladder. Urinary bladder is within normal limits given degree of distention. No suspicious pelvic mass. No suspicious osseous abnormality. IMPRESSION: 1. Mild diffuse hepatic steatosis. No suspicious hepatic mass. 2. Cholecystectomy changes without intrahepatic or extrahepatic biliary ductal dilatation. 3. Appendix appears surgically absent. No evidence for bowel obstruction or inflammation. 4. No evidence for obstructive uropathy. 5. Mild colonic diverticulosis without acute inflammatory changes. Electronically signed by: Neela Rust MD (05/01/2019 1:41 PM) [id number]
== END | disposition home or self-care (01) ==
LOC: KCIC CT 10:42
PROVIDERS: ATTEND Internal Medicine Gastroenterology
DX: K76.0 Fatty (change of) liver, not elsewhere classified (principal); K40.90 Unilateral inguinal hernia, without obstruction or gangrene, not specified as recurrent; K57.30 Diverticulosis of large intestine without perforation or abscess without bleeding; K44.9 Diaphragmatic hernia without obstruction or gangrene; N28.1 Cyst of kidney, acquired; N94.89 Other specified conditions associated with female genital organs and menstrual cycle; Z90.49 Acquired absence of other specified parts of digestive tract
CPT/HCPCS: 74177; Q9966; Q9967

== ENCOUNTER → 2019-05-24 | Outpatient (CLI) | payer BC ==
[~2019-05-24] MED LIST changes: -IOHEXOL 240 MG/ML 50ML VIAL. PO ONE; -IOHEXOL 300 MG/ML 100ML VIAL. IV ONE
--- NOTE | 2019-05-24 10:25 | KCIC ---
SMALL BOWEL SERIES History: Right lower quadrant pain and nausea, history of episode of bloody stools and irregular bowel movements Comparison: CT exam May 01, 2019 Findings: Dock Operator radiograph demonstrates clips in the right upper quadrant and right lower quadrant compatible with cholecystectomy and appendectomy respectively. There are some small calcific opacities in the pelvis bilaterally, apparently phleboliths as seen on CT. No gas dilated bowel is identified. Small bowel examination was performed. There was normal transit of contrast through the small bowel, seen in the colon at about 60 minutes. Caliber of the small bowel is considered within normal limits, no definitive stricture. There is a small diverticulum of the jejunum. No significant stricture or mucosal irregularity was identified of the terminal ileum. Fluoroscopy time: 1 minute 25 seconds, 2 images Impression: 1. There is a small proximal small bowel diverticulum. No significant stricture was identified. Electronically signed by: Mode Nguyễn MD (05/24/2019 10:22 AM) [id number]
== END | disposition home or self-care (01) ==
LOC: KCIC 08:18
PROVIDERS: ATTEND Internal Medicine Gastroenterology
DX: K57.10 Diverticulosis of small intestine without perforation or abscess without bleeding (principal); Z90.49 Acquired absence of other specified parts of digestive tract; Z90.89 Acquired absence of other organs
CPT/HCPCS: 74250

== ENCOUNTER → 2019-06-07 | Day surgery (SDC) | payer BC ==
[~2019-06-07] MED LIST changes: +IV RINGERS,LACTATED 1000ML 1,000 ML IV SCH; +PROPOFOL 20 ML IV ONE
[2019-06-07 08:13] VITALS: BP 114/62
--- NOTE | 2019-06-07 08:38 | HP ---
ADMIT DATE: 06/07/2019 REFERRING PHYSICIAN: Lavon Elias MD HISTORY OF PRESENT ILLNESS: A 54-year-old female with past medical history significant for angioedema, gastroparesis, heartburn, right lower quadrant pain, is seen with persistent discomfort. She has also had change in bowel habits with some alternating constipation and diarrhea. CT scan revealed a cholecystectomy, previous appendectomy. No evidence of obstructive uropathy, mild diverticulosis. Small-bowel series revealed proximal small-bowel diverticulum. With continued issues, she is here for interval colonoscopy. PAST MEDICAL HISTORY: Arthritis, status post cholecystectomy, appendectomy, constipation, gastroparesis. ALLERGIES: HYDROCODONE. PAST SURGICAL HISTORY: Appendectomy, cholecystectomy, hysterectomy, bladder suspension. MEDICATIONS: Include fiber, multivitamins, coconut oil and Zyrtec. FAMILY HISTORY AND SOCIAL HISTORY: She is a social drinker and nonsmoker. REVIEW OF SYSTEMS: Per records. PHYSICAL EXAMINATION: GENERAL: Reveals a well-nourished, well-developed female, alert, cooperative, in no acute distress. VITAL SIGNS: Temperature 97, pulse 77, respirations 20. HEENT: Normocephalic, atraumatic head. Pupils and extraocular muscles are not tested. Sclerae anicteric. NECK: Supple. LUNGS: Clear. CARDIOVASCULAR: Reveals an S1, S2 without S3, S4 or appreciable murmur. ABDOMEN: Reveals multiple surgical incisions. Normoactive bowel sounds with right lower quadrant tenderness in the inguinal region. EXTREMITIES: Reveals no cyanosis, clubbing or edema. IMPRESSION: Right lower quadrant abdominal pain, change in bowel habits. Differential includes inflammatory bowel disease, colon polyps, diverticular disease and hernia formation and adhesions. In view of previous x-rays, colonoscopy is recommended at this time. If it is unrevealing then surgical consultation for possible hernia repair that can be palpated on exam will be pursued. RADHA MCKENZIE MD DR: ANGELO/francois JOB#: [id number] / [id number]
== END ==
LOC: ENDOS 05:48
PROVIDERS: ATTEND Internal Medicine Gastroenterology
DX: K57.30 Diverticulosis of large intestine without perforation or abscess without bleeding (principal); K64.0 First degree hemorrhoids; Z88.5 Allergy status to narcotic agent; Z90.49 Acquired absence of other specified parts of digestive tract; Z98.890 Other specified postprocedural states; Z87.39 Personal history of other diseases of the musculoskeletal system and connective tissue
CPT/HCPCS: 45378; J2704

== ENCOUNTER 2019-10-20 13:49 | Emergency (ER) | payer BC ==
[~2019-10-20] VITALS: Ht 165.1 cm; Wt 81.6 kg
[~2019-10-20 13:49] MED LIST changes: -IV RINGERS,LACTATED 1000ML 1,000 ML IV SCH; -PROPOFOL 20 ML IV ONE
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
[2019-10-20] MEDS ORDERED: KETOROLAC 60 MG/2 ML VIAL. IM ONE (15:45)
--- NOTE | 2019-10-20 16:29 | RAD ---
EXAM: Right wrist, 3 views. HISTORY: Pain and decreased range of motion. COMPARISON: None. FINDINGS: 3 views of the right wrist are obtained. There is a mildly displaced and angulated distal radial metaphyseal fracture. There is also a mildly displaced ulnar styloid fracture. This may be subacute. IMPRESSION: Mildly displaced distal radial metaphyseal and ulnar styloid fractures. Electronically signed by: Ailyn Parnell MD (10/20/2019 4:26 PM) [id number]
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
[2019-10-20] MEDS ORDERED: fentaNYL PF VIAL 100 MCG/2 ML VIAL IM ONE (19:00)
[2019-10-20] MEDS ORDERED: ONDANSETRON ODT 4 MG TAB.RAPDIS. PO ONE (19:00)
[2019-10-20 19:59] VITALS: BP 156/71
== END 2019-10-20 20:15 | disposition short-term general hospital (02) ==
LOC: ER 13:49
DX: S02.82XA Fracture of other specified skull and facial bones, left side, initial encounter for closed fracture (principal); S02.642A Fracture of ramus of left mandible, initial encounter for closed fracture; S52.611A Displaced fracture of right ulna styloid process, initial encounter for closed fracture; S52.591A Other fractures of lower end of right radius, initial encounter for closed fracture; K21.9 Gastro-esophageal reflux disease without esophagitis; G43.909 Migraine, unspecified, not intractable, without status migrainosus; Z90.89 Acquired absence of other organs; Z90.49 Acquired absence of other specified parts of digestive tract; Z90.710 Acquired absence of both cervix and uterus; Z98.890 Other specified postprocedural states; Z88.5 Allergy status to narcotic agent; Z79.899 Other long term (current) drug therapy; Y08.89XA Assault by other specified means, initial encounter; Y93.89 Activity, other specified; Y92.89 Other specified places as the place of occurrence of the external cause; Y99.8 Other external cause status
CPT/HCPCS: 29125; 70450; 70486; 73110; 96372; 99285; J1885; J3010; Q0162

== ENCOUNTER → 2020-04-01 | Outpatient (CLI) | payer BC ==
[~2020-04-01] MED LIST changes: -CETI10TA22 PO; +CETI10TA24 PO
--- NOTE | 2020-04-01 16:09 | KCIC ---
SHOULDER 2+V LEFT DATE: 04/01/2020 12:00 AM INDICATION: Reason: LEFT SHOULDER PAIN AND POPPING WITH MOVEMENT / Spl. Instructions: / History: COMPARISON: None. FINDINGS: Bones: There is no evidence of acute fracture or dislocation. Joints: The joint spaces are normal. The acromiohumeral distance is not narrowed. Miscellaneous: No abnormal soft tissue calcifications in the shoulder. IMPRESSION: No acute osseous abnormality. Electronically signed by: Mode Sheriff MD (04/01/2020 4:06 PM) [id number]
== END | disposition home or self-care (01) ==
LOC: KCIC 14:18
PROVIDERS: ATTEND Family Medicine
DX: M25.512 Pain in left shoulder (principal)
CPT/HCPCS: 73030

== ENCOUNTER → 2020-05-01 | Outpatient (CLI) | payer BC ==
--- NOTE | 2020-05-01 12:22 | KCIC ---
Examination: MRI of the left shoulder without contrast HISTORY: History of left shoulder pain, decreased range of motion COMPARISON: None available Technique: Multiplanar, multisequence MR imaging of the left shoulder performed without contrast. FINDINGS: The long head of the biceps tendon within the bicipital groove. The attachment of the long head the biceps tendon to the superior labral anchor grossly appears intact. The subscapularis tendon appears intact. Moderate increased signal identified in the supraspinatus, interspinous tendon likely tendinosis. Small amount of fluid identified in subacromial subdeltoid bursa. The muscle bulk grossly appears unremarkable. Acromion is type II. Mild increased signal identified in the superior labrum. Mild degenerative changes identified at acromioclavicular joint. Fat is present within the rotator interval. IMPRESSION: 1. Small amount of fluid identified in subacromial subdeltoid bursa. Differential includes bursitis. A tiny focus of supraspinatus tendon tear is not completely excluded given the fluid in the subacromial subdeltoid bursa.Consider MR arthrogram for better evaluation. 2. Tendinosis rotator cuff. 3. Probable small SLAP tear. Electronically signed by: Earl Myers MD (05/01/2020 12:19 PM) [id number]
== END ==
LOC: KCIC MRI 10:35
PROVIDERS: ATTEND Orthopaedic Surgery
DX: M75.52 Bursitis of left shoulder (principal); M75.102 Unspecified rotator cuff tear or rupture of left shoulder, not specified as traumatic; M77.8 Other enthesopathies, not elsewhere classified
CPT/HCPCS: 73221